=== PATIENT | male | born 1945 | race Caucasian/White ===

== ENCOUNTER → 2019-06-21 | Outpatient (CLI) | payer MEDICARE, BC ==
[~2019-06-21] MED LIST: CELEBREX 200MG200 MG PO; FERROUS SU325 MG/TAB PO; FOLIC ACID 40400 MCG PO; HCTZ12.5TAB PO; MAVIK4 MG PO; NORCO 325 MG-7.1 TAB PO; TYLENOL 500MG500 MG PO; ULTRAM 50MG TAB50 MG; VITAMIN C500 MG PO; XARELTO10 MG PO
== END ==
LOC: COL.RAD 09:49
DX: M79.652 Pain in left thigh (principal)
CPT/HCPCS: J3301; Q9967